=== PATIENT | female | born 1945 | race Caucasian/White ===

== ENCOUNTER 2019-12-21 13:24 | Outpatient (CLI) | payer MEDICARE, SELFPAY | END 2019-12-21 13:25 | disposition home or self-care (01) | DX: H90.3 Sensorineural hearing loss, bilateral (principal) | CPT/HCPCS: 92557; 92567 ==

== ENCOUNTER 2020-06-01 13:30 | Outpatient (RCR) | payer SELFPAY | END 2020-06-01 23:59 | disposition home or self-care (01) | LOC: ANHAUDIO 13:30 | DX: Z46.1 Encounter for fitting and adjustment of hearing aid (principal) | CPT/HCPCS: 99199; V5261 ==

== ENCOUNTER 2020-07-07 00:18 | Outpatient (CLI) | payer MEDICARE, OTHER, SELFPAY ==
[2020-07-07 17:08] LABS: SARS-CoV-2 RNA PCR Negative
== END 2020-07-07 00:19 | disposition home or self-care (01) ==
LOC: ANHCOVIDDT 00:19
PROVIDERS: Visit Provider Internal Medicine Gastroenterology
DX: Z01.812 Encounter for preprocedural laboratory examination (principal); Z20.828 Contact with and (suspected) exposure to other viral communicable diseases
CPT/HCPCS: 87635; C9803; U0003

== ENCOUNTER 2020-07-10 00:34 | Day surgery (SDC) | payer MEDICARE, SELFPAY ==
[2020-06-30 13:50] VITALS: BMI 29.7
[2020-07-10 08:29] VITALS: BP 141/99; PULSE 78; RESP 18; TEMP 36.4; O2SAT 98
--- NOTE | 2020-07-10 08:34 | PM.HPGS ---
History of Present Illness History of Present Illness Consent: Risks, benefits, and alternatives have been discussed and questions answered. Patient agrees to proceed with procedure. Chief complaint: Neoplasm Screening Narrative: Crissy Perez is a 74 year old W female with chronic change in bowel pattern with intermittent diarrhea occasional constipation. Her last colonoscopy was 9 years ago no abnormality was seen at that time. She also has 2 paternal aunts with colon cancer. She denies any rectal bleeding. No weight loss. [facility] Past Medical History Medical History (Updated 07/10/20 @ 08:35 by Doc Gomez MD) Dyslipidemia GERD (gastroesophageal reflux disease) Surgical History Surgical History (Updated 07/10/20 @ 08:37 by Doc Gomez MD) H/O bladder repair surgery H/O hysterectomy for benign disease H/O rotator cuff surgery History of tonsillectomy and adenoidectomy Status post bunionectomy Status post carpal tunnel release of both wrists Status post glaucoma surgery Family History Family History (Updated 01/13/14 @ 15:55 by DOCTOR UNKNOWN) Other Cerebrovascular accident Family history of alcoholism Family history of cataracts Family history of hearing loss Family history of mental disorder Hypertension Social History Social History Smoking status: Never smoker Alcohol intake: never Alcohol use details: Rarely Drinks Substance use: never Substance use type: does not use Spiritual care concerns: No Meds Home Medications and Allergies Home Medications Medication Instructions Recorded Confirmed Type aspirin 81 mg PO DAILY 06/30/20 07/10/20 History beta carotene 25,000 unit PO DAILY 06/30/20 07/10/20 History biotin 10,000 mcg PO DAILY 06/30/20 07/10/20 History calcium carbonate-vitamin D3 1 tablet PO DAILY 06/30/20 07/10/20 History [Calcium 600 + D(3)] dorzolamide-timolol [Cosopt] 1 drp OPHTHALMIC (EYE) BID 06/30/20 07/10/20 History folic acid 0.8 mg PO DAILY 06/30/20 07/10/20 History gabapentin 100 mg PO HS 06/30/20 07/10/20 History mecobalamin (vitamin B12) 1,000 mcg PO DAILY 06/30/20 07/10/20 History omeprazole 20 mg PO DAILY 06/30/20 07/10/20 History prednisolone acetate 1 drp OPHTHALMIC (EYE) 4XW 06/30/20 07/10/20 History Allergies Allergy/AdvReac Type Severity Reaction Status Date / Time brimonidine Allergy Unknown Watery Eye Verified 07/10/20 08:26 cephalexin Allergy Unknown Unknown Verified 07/10/20 08:26 metronidazole Allergy Unknown Unknown Verified 07/10/20 08:26 timolol Allergy Unknown Swelling Verified 07/10/20 08:26 of the Eye moxifloxacin AdvReac Unknown ABD PAIN Verified 07/10/20 08:26 pravastatin AdvReac Unknown FATIGUE, Verified 07/10/20 08:26 MYALGIA sertraline AdvReac Unknown NIGHTMARES Verified 07/10/20 08:26 expectorants AdvReac Unknown Other Uncoded 07/10/20 08:26 Vital Signs Vital Signs - 24 hr 07/10/20 08:29 Temperature 36.4 C Pulse Rate 78 Respiratory Rate 18 Blood Pressure 141/99 H Pulse Oximetry 98 Exam Const: Orientation/consciousness: patient oriented x3 Resp: Auscultation: clear to auscultation bilaterally Cardio: Rate: regular rate Rhythm: regular rhythm Heart sounds: no murmurs GI: GI Palp: Yes Soft to palpation, No Tenderness to palpation present (GI), Yes No hepatosplenomegaly present and No Palpable mass present Auscultation: normal bowel sounds Neuro: General: patient oriented x3 and no focal motor deficits Extrem: General: no pedal edema Assessment and Plan Additional Plan colonoscopy for evaluation of chronic change in bowel pattern has screening procedure
[2020-07-10] MEDS: LACTATED RINGERS 1,000 ML 150 ML IV CONT (08:37)
[2020-07-10] MEDS: ONDANSETRON INJ 4 MG/2 ML VIAL IV PUSH (09:10)
--- NOTE | 2020-07-10 09:13 | WPDANESEPPF ---
Anes - Initial Pre Proc Eval Procedure: Operation Date: 07/10/20 09:30 Proposed Procedures p Screening Colonoscopy - Doc Gomez MD Date/Time: 07/10/20 09:13 Surgeon: Doc Gomez MD Pre Op Diagnosis: Neoplasm Screening Patient Data Age: 74 Gender: F Height: 5 ft 4.5 in Weight: 82.1 kg Last Vital Signs Temp 97.6 F 07/10/20 08:29 Pulse 78 07/10/20 08:29 Resp 18 07/10/20 08:29 BP 141/99 H 07/10/20 08:29 Pulse Ox 98 07/10/20 08:29 Allergies Allergy/AdvReac Type Severity Reaction Status Date / Time brimonidine Allergy Unknown Watery Eye Verified 07/10/20 08:26 cephalexin Allergy Unknown Unknown Verified 07/10/20 08:26 metronidazole Allergy Unknown Unknown Verified 07/10/20 08:26 timolol Allergy Unknown Swelling Verified 07/10/20 08:26 of the Eye moxifloxacin AdvReac Unknown ABD PAIN Verified 07/10/20 08:26 pravastatin AdvReac Unknown FATIGUE, Verified 07/10/20 08:26 MYALGIA sertraline AdvReac Unknown NIGHTMARES Verified 07/10/20 08:26 expectorants AdvReac Unknown Other Uncoded 07/10/20 08:26 Home Medications Medication Instructions Recorded Confirmed Type aspirin 81 mg PO DAILY 06/30/20 07/10/20 History beta carotene 25,000 unit PO DAILY 06/30/20 07/10/20 History biotin 10,000 mcg PO DAILY 06/30/20 07/10/20 History calcium carbonate-vitamin D3 1 tablet PO DAILY 06/30/20 07/10/20 History [Calcium 600 + D(3)] dorzolamide-timolol [Cosopt] 1 drp OPHTHALMIC (EYE) BID 06/30/20 07/10/20 History folic acid 0.8 mg PO DAILY 06/30/20 07/10/20 History gabapentin 100 mg PO HS 06/30/20 07/10/20 History mecobalamin (vitamin B12) 1,000 mcg PO DAILY 06/30/20 07/10/20 History omeprazole 20 mg PO DAILY 06/30/20 07/10/20 History prednisolone acetate 1 drp OPHTHALMIC (EYE) 4XW 06/30/20 07/10/20 History Patient hx anesthesia problems: none Family hx anesthesia problems: none PMFSH Past Medical History Medical History (Updated 07/10/20 @ 09:16 by Twin Harding MD) CVA (cerebral vascular accident) Dyslipidemia GERD (gastroesophageal reflux disease) Hyperlipidemia Surgical History Surgical History (Updated 07/10/20 @ 08:37 by Doc Gomez MD) H/O bladder repair surgery H/O hysterectomy for benign disease H/O rotator cuff surgery History of tonsillectomy and adenoidectomy Status post bunionectomy Status post carpal tunnel release of both wrists Status post glaucoma surgery Family History Family History (Updated 01/13/14 @ 15:55 by DOCTOR UNKNOWN) Other Cerebrovascular accident Family history of alcoholism Family history of cataracts Family history of hearing loss Family history of mental disorder Hypertension Social History Social History Smoking status: Never smoker Alcohol intake: never Alcohol use details: Rarely Drinks Substance use: never Substance use type: does not use Spiritual care concerns: No Anes - Eval Final PreProcedure Day of Procedure 07/10/20 09:13 Patient weight: overweight Heart: regular rate and rhythm Lungs: clear to auscultation Airway: Mallampati scale class II Neurological: alert and oriented Last oral intake: >/= 8 hours ASA classification: III Emergent: no Anesthetic plan: proceed Anesthesia type and monitoring: general GIVS and standard monitoring Informed Consent: The patient's anesthetic plan and its attendant risks and benefits were discussed with the patient/family/POA. Questions were solicited and answers provided to the satisfaction of the patient/family/POA.
[2020-07-10 09:46] VITALS: BP 118/70; PULSE 66; RESP 18; O2SAT 98
[2020-07-10 09:56] VITALS: BP 115/68; PULSE 66; RESP 17; O2SAT 97
[2020-07-10 10:06] VITALS: BP 126/72; PULSE 53; RESP 15; O2SAT 99
[2020-07-10 10:14] VITALS: BP 137/76; PULSE 50; RESP 18; O2SAT 98
== END 2020-07-10 10:20 | disposition home or self-care (01) ==
PROVIDERS: Visit Provider Internal Medicine Gastroenterology
PROC: 0DJD8ZZ Inspection of Lower Intestinal Tract, Via Natural or Artificial Opening Endoscopic (ICD-10-PCS; CPT 45378; principal; 2020-07-10 09:30)
DX: Z12.11 Encounter for screening for malignant neoplasm of colon (principal); K57.30 Diverticulosis of large intestine without perforation or abscess without bleeding; K64.8 Other hemorrhoids; Z80.0 Family history of malignant neoplasm of digestive organs; R19.4 Change in bowel habit; E78.5 Hyperlipidemia, unspecified; K21.9 Gastro-esophageal reflux disease without esophagitis
CPT/HCPCS: 45380; 88305; J2405; J2704; J7120

== ENCOUNTER 2020-07-27 09:52 | Emergency (ER) | payer MEDICARE, SELFPAY ==
--- NOTE | 2020-07-27 09:56 | ED.FEMALEGU ---
HPI - Female Genitourinary General Chief complaint: Urogenital-Female Stated complaint: Warts in genital area Time Seen by Provider: 07/27/20 10:15 Source: patient and RN notes reviewed Mode of arrival: ambulatory Limitations: no limitations History of Present Illness HPI Narrative: 74 female presents with concern for growths in her groin. Reports similar areas that she has had for more than 20 years under her breasts and between her breasts. Reports she is consulted a antique refinisher about these areas, has never had any of these removed. Reports within the past several weeks she is developed similar areas in her groin where her undergarments rub. Reports they are mildly itchy and irritated. Reports improvement of the irritation when she does not wear undergarments and uses cornstarch. Reports she has had a total hysterectomy and has never been diagnosed with HPV or had an abnormal Pap smear. MD elicited complaint: other (Groin irritation) Related Data Home Medications Medication Instructions Recorded Confirmed gabapentin 100 mg PO HS 06/30/20 07/10/20 omeprazole 20 mg PO DAILY 06/30/20 07/10/20 Allergies Allergy/AdvReac Type Severity Reaction Status Date / Time brimonidine Allergy Unknown Watery Eye Verified 07/10/20 08:26 cephalexin Allergy Unknown Unknown Verified 07/10/20 08:26 metronidazole Allergy Unknown Unknown Verified 07/10/20 08:26 timolol Allergy Unknown Swelling Verified 07/10/20 08:26 of the Eye moxifloxacin AdvReac Unknown ABD PAIN Verified 07/10/20 08:26 pravastatin AdvReac Unknown FATIGUE, Verified 07/10/20 08:26 MYALGIA sertraline AdvReac Unknown NIGHTMARES Verified 07/10/20 08:26 expectorants AdvReac Unknown Other Uncoded 07/10/20 08:26 Review of Systems Review of Systems: Narrative: CONSTITUTIONAL: Denies malaise, chills, sweats, or fever. CARDIOVASCULAR: Denies chest pain, palpitations RESPIRATORY: Denies cough or dyspnea. GENITOURINARY: Denies dysuria or hematuria. Denies abnormal vaginal bleeding or abnormal vaginal discharge SKIN: Reports bumps in her groin area but are occasionally irritating and itchy MUSCULOSKELETAL: Denies myalgia. All systems reviewed & are unremarkable except as noted in HPI and below [facility] Past Medical History Medical History (Updated 07/27/20 @ 10:31 by Karen Jacques NP) CVA (cerebral vascular accident) Dyslipidemia GERD (gastroesophageal reflux disease) Hyperlipidemia Surgical History Surgical History (Updated 07/10/20 @ 08:37 by Doc Gomez MD) H/O bladder repair surgery H/O hysterectomy for benign disease H/O rotator cuff surgery History of tonsillectomy and adenoidectomy Status post bunionectomy Status post carpal tunnel release of both wrists Status post glaucoma surgery Family History Family History (Updated 01/13/14 @ 15:55 by DOCTOR UNKNOWN) Other Cerebrovascular accident Family history of alcoholism Family history of cataracts Family history of hearing loss Family history of mental disorder Hypertension Social History Social History Smoking status: Never smoker Alcohol intake: never Substance use: never Substance use type: does not use Gender identity (if verbalized by the patient): Female Spiritual care concerns: No Comments At time of signature, agree with nursing past medical, surgical, social and family history. There is no relevant family history pertinent to the presenting complaint Exam Narrative: Exam Narrative: GENERAL: Well-appearing, well-nourished, and in no acute distress. HEAD: Normocephalic. EYES: PERRLA, conjunctivae clear. NECK: Supple. No lymphadenopathy CHEST: Clear to auscultation. No respiratory distress. HEART: Regular rate and rhythm. No murmur heard. SKIN: Warm, dry. Skin colored somewhat flat papules noted between breasts and under breasts. Some skin colored some slightly erythematous papules noted in the groin without surrounding erythema, edema, induration JAMES
[2020-07-27 10:07] VITALS: BP 116/77; PULSE 73; RESP 16; TEMP 36.9; O2SAT 98
== END 2020-07-27 10:34 | disposition home or self-care (01) ==
PROVIDERS: Emergency Provider Nurse Practitioner
DX: L91.8 Other hypertrophic disorders of the skin (principal); E78.5 Hyperlipidemia, unspecified; K21.9 Gastro-esophageal reflux disease without esophagitis; Z86.73 Personal history of transient ischemic attack (TIA), and cerebral infarction without residual deficits
CPT/HCPCS: 99211; G0463

== ENCOUNTER → 2020-12-29 12:04 | Outpatient (CLI) | payer MEDICARE, OTHER, SELFPAY ==
--- NOTE | ~2020-12-29 | MM_ITS ---
EXAMINATION: MM screening alexei BI w brenda HISTORY: Screening mammogram TECHNIQUE: Craniocaudal and mediolateral oblique 3-D tomosynthesis images were obtained and synthetic 2-D images were generated. CAD analysis was submitted and interpreted. COMPARISON: 10/21/2019, 10/19/2018, 10/15/2017 bilateral digital screening mammogram examinations BREAST PARENCHYMAL COMPOSITION: There are scattered areas of fibroglandular density. FINDINGS: Scattered benign calcifications, more numerous on the left. There is no evidence of suspici ous mass, calcification, or architectural distortion to suggest malignancy in either breast. There ch s been no suspicious interval change. IMPRESSION: 1. No mammographic evidence of malignancy. 2. Recommend routine screening mammography in one year. BI-RADS Category 2: Benign finding(s). Reviewed, dictated and finalized at location A. R RESOURCE SPECIALIST
== END ==
DX: Z12.31 Encounter for screening mammogram for malignant neoplasm of breast (principal)
CPT/HCPCS: 77063; 77067

== ENCOUNTER → 2022-01-30 10:27 | Outpatient (CLI) | payer MEDICARE, OTHER, SELFPAY ==
--- NOTE | ~2022-01-30 | MM_ITS ---
EXAMINATION: MM screening alexei BI w brenda HISTORY: Screening mammogram TECHNIQUE: Craniocaudal and mediolateral oblique 3-D tomosynthesis images were obtained and synthetic 2-D images were generated. CAD analysis was submitted and interpreted. COMPARISON: 12/29/2020, 10/21/2019, 10/19/2018 bilateral screening mammogram examinations BREAST PARENCHYMAL COMPOSITION: FINDINGS: There is a stable circumscribed approximately 5.8 mm opacity in the posterior upper outer q uadrant of the left breast, stable since 10/15/2017. There is no evidence of suspicious mass, calcifi cation, or architectural distortion to suggest malignancy in either breast. There has been no suspici ous interval change. IMPRESSION: 1. No mammographic evidence of malignancy. 2. Recommend routine screening mammography in one year. BI-RADS Category 2: Benign finding(s). Reviewed, dictated and finalized at location A.
== END ==
DX: Z12.31 Encounter for screening mammogram for malignant neoplasm of breast (principal)
CPT/HCPCS: 77063; 77067

== ENCOUNTER → 2023-02-18 09:49 | Outpatient (CLI) | payer MEDICARE, OTHER, SELFPAY ==
--- NOTE | ~2023-02-18 | MR_ITS ---
EXAMINATION: MR lumbar spine wo con DATE: 02/18/2023 10:56 INDICATION: Chronic midline low back pain TECHNIQUE: Magnetic resonance imaging (MRI) of the lumbar spine was performed without intravenous con trast. Sequences included sagittal T2-weighted FSE, sagittal T2-weighted FS FSE, sagittal T1-weighted FSE, and axial T2-weighted FSE. COMPARISON: None FINDINGS: 10 degrees lumbar dextroscoliosis. Sagittal alignment is normal. Vertebral body heights are normal. T 1 hyperintense likely hemangioma at L2. Bone marrow signal is otherwise normal. Moderate disc height loss at L2-L3. Mild disc height loss at remaining levels from T12-L1 through L5-S1. There are annular fissures at L2-L3 through L5-S1. The conus medullaris terminates at T12-L1. There is normal signal i n the caudal spinal cord. Paravertebral soft tissues are unremarkable. The following disc levels are specifically discussed: T12-L1: Disc is mildly bulging. There is mild bilateral facet joint osteoarthritis. There is minimal bilateral neural foraminal stenosis. There is mild central canal stenosis. L1-L2: Disc is bulging. There is mild hypertrophy of the ligamentum flavum. There is mild left and m oderate right facet joint osteoarthritis. There is mild right and mild to moderate left neural forami nal stenosis. There is mild central canal stenosis. L2-L3: Disc is bulging with small central disc extrusion with disc material extending 3 mm caudal to the level of the superior endplate of L3. There is mild hypertrophy of the ligamentum flavum. There is moderate bilateral facet joint osteoarthritis. There is mild right and mild to moderate left neura l foraminal stenosis. There is mild central canal stenosis. L3-L4: Disc is bulging. There is hypertrophy of the ligamentum flavum. There is moderate right and m ild to moderate left facet joint osteoarthritis. There is moderate left and mild to moderate right ne ural foraminal stenosis. There is mild central canal stenosis with mild narrowing of the left and rig ht lateral recesses. L4-L5: Disc is bulging with superimposed right foraminal zone disc extrusion with disc material exten ding couple millimeter caudal to the level of the superior endplate of L5. There is hypertrophy of th e ligamentum flavum. There is moderate left and severe right facet joint osteoarthritis. There is mod erate right and mild left neural foraminal stenosis. There is moderate central canal stenosis. There is also narrowing of the lateral recesses, mild on the left and severe on the right. L5-S1: Disc is bulging. There is hypertrophy of the ligamentum flavum. There is severe bilateral fac et joint osteoarthritis. There is moderate right and mild to moderate left neural foraminal stenosis. There is mild to moderate central canal stenosis. IMPRESSION: 1. 10 degree lumbar dextroscoliosis with moderate spondylosis. Reviewed, dictated and finalized at location L.
--- NOTE | ~2023-02-18 | MM_ITS ---
EXAMINATION: MM screening alexei BI w brenda HISTORY: Screening mammogram TECHNIQUE: Craniocaudal and mediolateral oblique 3-D tomosynthesis images were obtained and synthetic 2-D images were generated. CAD analysis was submitted and interpreted. COMPARISON: 01/30/2022, 12/29/2020, 10/21/2019 BREAST PARENCHYMAL COMPOSITION: The breasts are almost entirely fatty. FINDINGS: Scattered benign-appearing calcifications are present. No suspicious mass, calcification, o r architectural distortion are identified in either breast to suggest malignancy. There has been no s uspicious interval change. IMPRESSION: 1. No mammographic evidence of malignancy. 2. Recommend routine screening mammography in one year. BI-RADS Category 2: Benign finding(s). Reviewed, dictated and finalized at location A.
== END ==
PROVIDERS: PCP Hospitalist; Visit Provider Hospitalist
DX: Z12.31 Encounter for screening mammogram for malignant neoplasm of breast (principal); M47.896 Other spondylosis, lumbar region
CPT/HCPCS: 72148; 77063; 77067

== ENCOUNTER 2023-02-21 13:32 | Outpatient (CLI) | payer MEDICARE, OTHER, SELFPAY ==
--- NOTE | 2023-02-21 | ECG_ITS ---
Measurements Intervals [place] Rate: 77 P: 40 ID: [id number] QRS: -15 QRSD: 87 T: 47 QT: 356 QTc: 405 Interpretive Statements SINUS RHYTHM WITH FIRST DEGREE AV BLOCK BORDERLINE ECG NO PREVIOUS ECG AVAILABLE FOR COMPARISON Electronically Signed On 02-21-2023 14:23:48 CDT by Otoniel Brown D.O.
[2023-02-21 14:30] LABS: Anion Gap 6 mmol/L (8-16); Blood Urea Nitrogen 19 mg/dL (7-17); Calcium 9.3 mg/dL (8.4-10.2); Carbon Dioxide 28 mmol/L (22-30); Chloride 104 mmol/L (98-107); Estimated Glomerular Filt Rate > 60; Glucose 126 mg/dL (65-110); Potassium 3.8 mmol/L (3.4-5.0); Sodium 138 mmol/L (137-145)
== END 2023-02-21 13:33 | disposition home or self-care (01) ==
LOC: ANHLAB 13:36
PROVIDERS: PCP Hospitalist; Visit Provider Orthopaedic Surgery
DX: Z01.818 Encounter for other preprocedural examination (principal); I44.0 Atrioventricular block, first degree
CPT/HCPCS: 36415; 80048; 93005

== ENCOUNTER 2024-03-12 12:31 | Outpatient (CLI) | payer MEDICARE, SELFPAY ==
--- NOTE | ~2024-03-12 | MM_ITS ---
EXAMINATION: MM screening alexei BI w brenda HISTORY: Screening mammogram TECHNIQUE: Craniocaudal and mediolateral oblique 3-D tomosynthesis images were obtained and synthetic 2-D images were generated. CAD analysis was submitted and interpreted. COMPARISON: 02/18/2023, 12/29/2020 bilateral screening mammogram examinations BREAST PARENCHYMAL COMPOSITION: There are scattered areas of fibroglandular density. FINDINGS: Scattered benign calcifications are again present. There is no evidence of suspicious mass, calcification, or architectural distortion to suggest malignancy in either breast. There has been no suspicious interval change. IMPRESSION: 1. No mammographic evidence of malignancy. 2. Recommend routine screening mammography in one year. BI-RADS Category 2: Benign finding(s). Reviewed, dictated and finalized at location B.
== END 2024-03-12 12:32 ==
PROVIDERS: PCP Family Medicine; Visit Provider Family Medicine
DX: Z12.31 Encounter for screening mammogram for malignant neoplasm of breast (principal)
CPT/HCPCS: 77063; 77067

== ENCOUNTER 2024-11-19 13:36 | Outpatient (CLI) | payer MEDICARE, SELFPAY ==
--- NOTE | ~2024-11-19 | XR_ITS ---
EXAMINATION: XR sacroiliac joints min 3V DATE: 11/19/2024 14:03 INDICATION: Pain at the sacroiliac joints. TECHNIQUE: 3 views of the sacroiliac joints were obtained. COMPARISON: None. FINDINGS: There is lumbar dextrocurvature and at least moderate spondylosis. No fracture. There is mi ld osteoarthritis of the sacroiliac joints. IMPRESSION: 1. Mild osteoarthritis of the sacroiliac joints. No evidence of inflammatory arthropathy. Reviewed, dictated and finalized at location A. FOLIO CONSULTANT IMPRESSION: 1. Mild osteoarthritis of the sacroiliac joints. No evidence of inflammatory ar thropathy.
== END 2024-11-19 13:37 | disposition home or self-care (01) ==
DX: M47.818 Spondylosis without myelopathy or radiculopathy, sacral and sacrococcygeal region (principal)
CPT/HCPCS: 72202

== ENCOUNTER 2025-03-21 12:33 | Outpatient (CLI) | payer MEDICARE, SELFPAY ==
--- NOTE | ~2025-03-21 | MM_ITS ---
EXAMINATION: screening [facility] BI w brenda INDICATION: Asymptomatic, referred for screening mammogram COMPARISON: 03/12/2024 2 10/19/2018 TECHNIQUE: Digital breast tomosynthesis craniocaudal and mediolateral oblique views of Both breasts w ere obtained with computer-aided detection to assist in interpretation of the study. FINDINGS: The breasts are almost entirely fatty. No focal dominant mass, architectural distortion, or suspicious microcalcifications are identified. There are no features to suggest malignancy. IMPRESSION: No evidence of malignancy in the breast. Recommend continued screening mammography BI-RADS 1, NEGATIVE Reviewed, dictated and finalized at location B.
== END 2025-03-21 12:34 | disposition home or self-care (01) ==
LOC: MICIMG 12:34
DX: Z12.31 Encounter for screening mammogram for malignant neoplasm of breast (principal)
CPT/HCPCS: 77063; 77067

== ENCOUNTER 2025-06-02 14:15 | Outpatient (CLI) | payer MEDICARE, SELFPAY ==
--- OUTSIDE RECORDS SUMMARY | 2025-06-02 14:17 | XMS_ITS | Clinical Summary ---
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 kg (180 lb) 04/25/2025 9:22 AM CDT Height 153.7 cm (5' 0.5) 04/25/2025 9:22 AM CDT Body Mass Index 34.58 04/25/2025 9:22 AM CDT Plan of Treatment Health Maintenance Due Date Last Done Comments Covid-19 Vaccine (2023-2 5 season) 2024 06/21/2024, 06/19/2024, 07/11/2023, Additional history exists Influenza Vaccine (#1) 2025 , 06/12/2024, 06/27/2023, Additional history exists Depression Screening 04/18/2026 04/18/2025, 04/16/2023, 04/02/2023, Additional history exists Well Visit 65+ 04/18/2026 04/18/2025, 03/20, 02/18/2022 Fall Risk Assessment 05/10/2026 05/10/2025, 04/18/2025, 04/02/2023, Additional history exists Osteoporosis Screening-Bone Density Scan 04/25/2027 04/25/2025 DTaP/Tdap/Td Vaccine Discontinued 06/14/2008 Hepatitis B Screening Completed 04/11/2009 , 06/14/2008, 05/10/2008 Pneumococcal vaccine 65+ Completed 016, 09/14/2016, 11/14/2010 Zoster Vaccine Completed 03/17/2018, 12/18, 09/20/2008 Breast Cancer Screening-Mammogram Discontinued 02/18/2023, 01/31/2022, 01/30/2022 Hepatitis C Screening Discontinued Procedures Procedure Name Priority Date/Time Associated Diagnosis Comments VITAMIN D 25 HYDROXY Routine 05/18/2025 8:17 AM CDT Vitamin D deficiency VITAMIN B12 Routine 05/18/2025 8:17 AM CDT Vitamin B12 deficiency THYROID FUNCTION CASCADE Routine 05/18/2025 8:17 AM CDT Screening for thyroid disorder LIPID PANEL Routine 05/18/2025 8:17 AM CDT Benign essential hypertension HEMOGLOBIN A1C Routine 05/18/2025 8:17 AM CDT Screening for diabetes mellitus COMPREHENSIVE METABOLIC PANEL Routine 05/18/2025 8:17 AM CDT Benign essential hypertension CBC WITH AUTO DIFFERENTIAL Routine 05/18/2025 8:17 AM CDT Screening for deficiency anemia IR INJECTION SI JOINT LEFT WITH GUIDANCE Schedule Routine, Read Routine (OP Routine) 05/10/2025 11:37 AM CDT Sacroiliac joint pain DEXA AXIAL SKELETON BONE DENSITY 1 OR MORE SITES Schedule Routine, Read Routine (OP Routine) 04/25/2025 9:03 AM CDT Postmenopausal SCAN - RADIOLOGY/IMAGING 03/21/2025 HM MAMMOGRAPHY Routine 02/18/2023 from Last 3 Months or Most Recently Relevant to Health Maintenance Results * Thyroid Function [place] (05/18/2025 8:17 AM CDT) TSH 3.66 0.40 - 4.50 mIU/L [facility] Blood 05/18/2025 8:17 AM CDT 05/18/2025 8:18 AM CDT Narrative [facility] - 05/19/2025 4:36 AM CDT FASTING:YES FASTING: YES Stacey Hollingsworth MD LAB BLOOD ORDERABLES Final Result [facility] [address] [place] [address] * (ABNORMAL) CBC with auto differential (05/18/2025 8:17 AM CDT) WBC 10.0 3.8 - 10.8 Thousand/u L [facility] RBC, POC 4.74 3.80 - 5.10 Million/uL [facility] Hgb 13.1 11.7 - 15.5 g/dL [facility] Hct 41.8 35.0 - 45.0 % [facility] MCV 88.2 80.0 - 100.0 fL [facility] MCH 27.6 27.0 - 33.0 pg [facility] MCHC 31.3(L) 32.0 - 36.0 g/dL [facility] Comment: For adults, a slight decrease in the calculated MCHC value (in the range of 30 to 32 g/dL) is most likely not clinically significant; however, it should be interpreted with caution in correlation with other red cell parameters and the patient's clinical condition. Rdw 13.7 11.0 - 15.0 % [facility] Platelets 317 140 - 400 Thousand/u L [facility] MPV 9.8 7.5 - 12.5 fL [facility] Neutrophils, abs 6,950 1,500 - 7,800 cells/uL [facility] Lymphocytes, abs 2,330 850 - 3,900 cells/uL [facility] Monocyte abs 560 200 - 950 cells/uL [facility] Eosinophils, abs 120 15 - 500 cells/uL [facility] Basophils, abs 40 0 - 200 cells/uL [facility] Neutrophils 69.5 % [facility] Lymphocyte pct 23.3 % [facility] Monocytes 5.6 % [facility] Eosinophils 1.2 % [facility] Basophils 0.4 % [facility] Blood 05/18/2025 8:17 AM CDT 05/18/2025 8:18 AM CDT Narrative [facility] - 05/19/2025 4:36 AM CDT FASTING:YES FASTING: YES us Stacey Hollingsworth MD LAB BLOOD ORDERABLES Final Result [facility] [address] [place] [address] * Vitamin D 25 hydroxy (05/18/2025 8:17 AM CDT) Pathologist [facility] Vitamin D 25-OH 37 30 - 100 ng/mL [facility] Comment: Vitamin D Status 25-OH Vitamin D: Deficiency: <20 ng/mL Insufficiency: 20 - 29 ng/mL Optimal: > or = 30 ng/mL For 25-OH Vitamin D testing on patients on D2-supplementation and patients for whom quantitation of D2 and D3 fractions is required, the QuestAssureD(TM) 25-OH VIT D, (D2,D3), LC/MS/MS is recommended: order code 21107 (patients >2yrs). See Note 1 Note 1 For additional information, please refer to http://education.[employer]/faq/FYV071 (This link is being provided for informational/ educational purposes only.) Blood 05/18/2025 8:17 AM CDT 05/18/2025 8:18 AM CDT Narrative [facility] - 05/19/2025 4:36 AM CDT FASTING:YES FASTING: YES Result [facility] Stacey Hollingsworth MD LAB BLOOD ORDERABLES Final Result [facility] [address] [place] [address] * (ABNORMAL) Hemoglobin A1c (05/18/2025 8:17 AM CDT) Hgb A1C 6.4(H) <5.7 % of total Hgb [facility] Comment: For someone without known diabetes, a hemoglobin A1c value between 5.7% and 6.4% is consistent with prediabetes and should be confirmed with a follow-up test. For someone with known diabetes, a value <7% indicates that their diabetes is well controlled. A1c targets should be individualized based on duration of diabetes, age, comorbid conditions, and other considerations. This assay result is consistent with an increased risk of diabetes. Currently, no consensus exists regarding use of hemoglobin A1c for diagnosis of diabetes for children. Blood 05/18/2025 8:17 AM CDT 05/18/2025 8:18 AM CDT Narrative [facility] - 05/19/2025 4:36 AM CDT FASTING:YES FASTING: YES Stacey Hollingsworth MD LAB BLOOD ORDERABLES Final Result Performing Organization Address City/[facility]/ZIP Co de Phone Number [facility] [address] [place] [address] * Vitamin B12 (05/18/2025 8:17 AM CDT) Pathologist [facility] Vitamin B12 255 200 - 1,100 pg/mL [facility] Comment: Please Note: Although the reference range for vitamin B12 is 200-1100 pg/mL, it has been reported that between 5 and 10% of patients with values between 200 and 400 pg/mL may experience neuropsychiatric and hematologic abnormalities due to occult B12 deficiency; less than 1% of patients with values above 400 pg/mL will have symptoms. Blood 05/18/2025 8:17 AM CDT 05/18/2025 8:18 AM CDT [facility] - 05/19/2025 4:36 AM CDT FASTING:YES FASTING: YES Result [facility] Stacey Hollingsworth MD LAB BLOOD ORDERABLES Final Result Performing Organization Address [facility] [place] Co de Phone Number [facility] [address] [place] [address] * (ABNORMAL) Lipid panel (05/18/2025 8:17 AM CDT) [facility] Cholesterol 223(H) <200 mg/dL [facility] HDL 64 > OR = 50 mg/dL [facility] Triglycerides 102 <150 mg/dL [facility] LDL 139(H) mg/dL (calc) [facility] Comment: Reference range: <100 Desirable range <100 mg/dL for primary prevention; <70 mg/dL for patients with CHD or diabetic patients with > or = 2 CHD risk factors. LDL-C is now calculated using the Pankaj calculation, which is a validated novel method providing better accuracy than the Friedewald equation in the estimation of LDL-C. Wilmar WANG et al. BERNIE. 2013;310(19): 7694-6959 (http://education.trip.me.ithinksport/faq/MOX886) Chol/HDL ratio 3.5 <5.0 (calc) [facility] Non-HDL, (LDL+VLDL) 159(H) <130 mg/dL (calc) [facility] Comment: For patients with diabetes plus 1 major ASCVD risk factor, treating to a non-HDL-C goal of <100 mg/dL (LDL-C of <70 mg/dL) is considered a therapeutic option. Blood 05/18/2025 8:17 AM CDT 05/18/2025 8:18 AM CDT Narrative [facility] - 05/19/2025 4:36 AM CDT FASTING:YES FASTING: YES Stacey Hollingsworth MD LAB BLOOD ORDERABLES Final Result [facility] [address] [place] [address] * Comprehensive metabolic panel (05/18/2025 8:17 AM CDT) [facility] Glucose 89 65 - 99 mg/dL [facility] Comment: Fasting reference interval BUN 23 7 - 25 mg/dL [facility] Creatinine 0.78 0.60 - 1.00 mg/dL [facility] eGFR 77 > OR = 60 mL/min/1.7 3m2 [facility] BUN/creat ratio SEE NOTE: 6 - 22 (calc) [facility] Comment: Not Reported: BUN and Creatinine are within reference range. Sodium 140 135 - 146 mmol/L [facility] Potassium, pl 4.6 3.5 - 5.3 mmol/L [facility] Chloride 105 98 - 110 mmol/L [facility] CO2 27 20 - 32 mmol/L [facility] Calcium 9.0 8.6 - 10.4 mg/dL [facility] Protein, sr 6.9 6.1 - 8.1 g/dL [facility] Albumin 4.1 3.6 - 5.1 g/dL [facility] GLOBULIN 2.8 1.9 - 3.7 g/dL (calc) [facility] Alb/glob ratio 1.5 1.0 - 2.5 (calc) [facility] Bilirubin, total 0.5 0.2 - 1.2 mg/dL [facility] Alk phos 77 37 - 153 U/L [facility] AST 12 10 - 35 U/L [facility] ALT (SGPT) 13 6 - 29 U/L [facility] Blood 05/18/2025 8:17 AM CDT 05/18/2025 8:18 AM CDT Narrative [facility] - 05/19/2025 4:36 AM CDT FASTING:YES FASTING: YES us Stacey Hollingsworth MD LAB BLOOD ORDERABLES Final Result Performing Organization Address City/[facility] Co de Phone Number [facility] [address] [place] [address] * IR Injection SI Joint Left with Guidance (05/10/2025 11:37 AM CDT) Narrative [facility] - 05/10/2025 11:37 AM CDT The images from this study are not interpreted by Radiology. Please refer to the physician's procedure / OR operative note. us Donato Mahan MD IMG IR PROCEDURES Final Res ult Performing Organization Address [facility] [place] Co de Phone Number [email or web address] * Dexa Axial Skeleton Bone Density 1 or 2 Site (04/25/2025 9:03 AM CDT) Anatomical Region Laterality Modality Body N/A Radiographic Brandy ging Narrative 04/25/2025 1:04 PM CDT Patient Name: Crissy Perez Date of : 1945 Date of scan: 04/25/2025 Bone mineral density was performed on a GleeMaster Discovery Densitometer. Based on machine cross-calibration and precision studies the least significant changes of this densitometer is 0.024 g/cm2 at the spine, 0.020 g/cm2 at the total proximal femur, and 0.014g/cm2 at the forearm. HISTORY: This is a 79 y.o. postmenopausal female. She reports that she has never smoked. She has never used smokeless tobacco. Previously treated with hormone replacement therapy and thyroid hormone and current complaint of back pain, neck pain, and leg pain. INDICATIONS: Menopause status. FINDINGS: BONE MINERAL DENSITY OF THE LUMBAR SPINE Bone Mineral Density (BMD) of the lumbar spine was measured from L1-L4 and the average density was calculated to be 1.167 gm/cm2. This corresponds to a T-score (standard deviations from the mean of young adults) of 1.1. There is no previous study available for comparison. BONE MINERAL DENSITY OF THE PROXIMAL FEMUR Bone Mineral Density (BMD) of the left hip total was found to be 0.927 gm/cm2. This corresponds to a T-score standard deviations from the mean of young adults of -0.1. Femoral neck is 0.842 gm/cm2 with a T-score (standard deviations from the mean of young adults) of -0.1. There is no previous study available for comparison. SUMMARY: Bone mineral density is near the young adult normal mean with no increased risk for fracture. ADDITIONAL COMMENTS: Postmenopausal Women and Men Over 50: Diagnostic criteria: Osteoporosis: BMD at or below -2.5 T-score; Osteopenia (low bone mass): BMD between -1.0 and -2.5 T-score. If the patient has a history of a fragility fracture, a fracture that occurred with trauma equivalent to a fall from a standing position or less, then the diagnosis is osteoporosis regardless of bone density. The history and data sections of the bone mineral density scan were prepared by Renetta Foy) JAMARCUS who is accredited by the International Society of Clinical Densitometry. The overall patient assessment and scan interpretation were performed by Justina Ortega M.D. who is certified by the International Society of Clinical Densitometry. [id number] Stacey Hollingsworth MD [facility] DXA PROCEDURES F inal Result * SCAN - RADIOLOGY/IMAGING (03/21/2025) Anatomical Region Laterality Modality Other Provider Scanning Final Result * MAMMOGRAPHY (02/18/2023) [facility] Mammography Normal us Historical Provider HEALTH MAINTENANCE Final Result from Last 3 Months or Most Recently Relevant to Health Maintenance Insurance MEDICARE [facility] Address: [facility] [id number] [place] [address] MEDICARE [facility] Address: [facility] [id number] [place] [id number] Care Teams Magazine Repairer Relationship Specialty Start Date End Date Stacey Hollingsworth MD PCP - General Geriatric Medicine 08/18/24
--- OUTSIDE RECORDS SUMMARY | 2025-06-02 14:17 | XMS_ITS ---
Author Organization [facility] stiQRd [facility] Address [address] [place] [address] Care Team Providers Care Blade Bender Furnace Tender Name Role Phone Chantelle Badillo Unavailable [phone] REASON FOR VISIT Therapy Visit, I am doing so much beter Medications Medication SIG (Take, Route, Frequency, Duration) Notes Start Date End Date Status Gabapentin 100 MG Oral 05/13/2022 A ctive Acetaminophen-Codeine #3 300-30 MG Oral 05/13/2022 Active Dorzolamide HCl-Timolol Mal 22.3-6.8 MG/ML Ophthalmic 05/13/2022 Active Gabapentin 600 MG Oral 05/13/2022 A ctive prednisoLONE Acetate 1 % Ophthalmic 05/13/2022 Active HYDROcodone-Acetaminophen 5-325 MG Oral 05/13/2022 Active Gabapentin 300 MG Oral 05/13/2022 A ctive Meloxicam 7.5 MG Oral 05/13/2022 Ac tive Omeprazole 20 MG Oral 05/13/2022 Ac tive Furosemide 20 MG Oral 05/13/2022 Ac tive Amoxicillin-Pot Clavulanate 875-125 MG Oral 05/13/2022 Active Social History Tobacco Use: Social History Observation Description Date Details (start date - stop date) Never Smoker NA - NA Sex Assigned At : Social History Observation Description Sex Assigned At Female Tobacco Control (Standard) Question Answer Notes Tobacco use: Nonsmoker Encounters Encounter Location Date Provider Diagnosis [facility] [address] [place] [address] 06/01/2025 Chantelle Cheng Adjustment disorder, unspecified F43.20 Assessments Encounter Date Diagnosis (ICD Code) Assessment Notes Treatment Notes Treatment Clinical Notes Section Notes 06/01/2025 Adjustment disorder, unspecified (ICD-10 - F43.20) 06/01/2025 Edin Woodward, a 79-year-old female, presents with grief and emotional distress related to recent marital separation after 17 years of marriage, while managing pre-diabetes and musculoskeletal pain. Adjustment Disorder with Depressed Mood Assessment: Smitha is experiencing emotional distress and grief following the recent separation from her of 17 years. She reports actively working on forgiveness and processing the loss of her marriage, indicating a healthy coping mechanism. The patient is taking proactive steps to create a positive environment by removing items associated with painful memories from her home. Despite the emotional challenges, she maintains a generally positive outlook and is exploring independent activities such as travel, suggesting resilience and adaptive coping strategies. Plan: - Continue to support patient's grief process and coping strategies - Encourage ongoing efforts in forgiveness and creating a positive home environment - Support patient's exploration of independent activities as a means of self-care and personal growth - Monitor for signs of worsening mood or complicated grief Gait, Strength, and Balance Training ExercisesThis handout provides simple exercises to improve your gait, strength, and balance. Theseexercises can help prevent falls, improve mobility, and enhance overall function. Perform them in asafe space, use support if needed, and stop if you feel pain or dizziness.1. Gait Training Exercises- Walk in a straight line for 10-20 feet, heel-to-toe.- Step over small objects (cones or rolled towels).- Practice walking sideways and backwards.- Use a treadmill if available, under supervision.2. Balance Exercises- Stand on one foot for 10-30 seconds; switch legs.- Walk heel-to-toe in a straight line.- Use a balance board or cushion to challenge stability.- Practice rising from a chair without using your hands.3. Strength Training Exercises- Qya-mq-bymho: rise from a chair repeatedly.- Wall push-ups: stand at arm's length from a wall and push.- Step-ups on a low step or stairs.- Leg lifts while seated or lying down.Consult your primary care provider (PCP) before starting these exercises, especially if you havemedical conditions or difficulty performing them Plan Of Treatment Treatment Notes Assessment Notes Other Smitha, a 79-year-old female, presents with grief and emotional distress related to recent marital separation after 17 years of marriage, while managing pre-diabetes and musculoskeletal pain. Adjustment Disorder with Depressed Mood Assessment: Smitha is experiencing emotional distress and grief following the recent separation from her of 17 years. She reports actively working on forgiveness and processing the loss of her marriage, indicating a healthy coping mechanism. The patient is taking proactive steps to create a positive environment by removing items associated with painful memories from her home. Despite the emotional challenges, she maintains a generally positive outlook and is exploring independent activities such as travel, suggesting resilience and adaptive coping strategies. Plan: - Continue to support patient's grief process and coping strategies - Encourage ongoing efforts in forgiveness and creating a positive home environment - Support patient's exploration of independent activities as a means of self-care and personal growth - Monitor for signs of worsening mood or complicated grief Gait, Strength, and Balance Training ExercisesThis handout provides simple exercises to improve your gait, strength, and balance. Theseexercises can help prevent falls, improve mobility, and enhance overall function. Perform them in [facility] space, use support if needed, and stop if you feel pain or dizziness.1. Gait Training Exercises- Walk in a straight line for 10-20 feet, heel-to-toe.- Step over small objects (cones or rolled towels).- Practice walking sideways and backwards.- Use a treadmill if available, under supervision.2. Balance Exercises- Stand on one foot for 10-30 seconds; switch legs.- Walk heel-to-toe in a straight line.- Use a balance board or cushion to challenge stability.- Practice rising from a chair without using your hands.3. Strength Training Exercises- Vuh-lv-nvihq: rise from a chair repeatedly.- Wall push-ups: stand at arm's length from a wall and push.- Step-ups on a low step or stairs.- Leg lifts while seated or lying down.Consult your primary care provider (PCP) before starting these exercises, especially if you havemedical conditions or difficulty performing them Next Appt Details Follow Up: 2 Weeks, Reason: Provider Name:Chantelle Cheng, 06/15/2025 03:00:00 PM, [address], [facility] [address], [place], [address], Provider Name:Chantelle Bro Raúl s Logan, 06/29/2025 03:00:00 PM, [address], [place] [address], [place], [address], Provider Name:Chantelle chris Logan, 07/13/2025 03:00:00 PM, [address], [place] [address], [place], [address], Progress Notes * SMITHA SOLITARIODOB:1945 ( 79 yo F)Acc No.[id number]:06/01/2025 Patient: Jaylon MAYES WOODWARD Provider: Jeimy CHENG LCSW :1945 A ge:79 Y S ex:Female Date:06/01/2025 Address:[address] [place], [place] [id number] Data: * Time Tracker: * Date Start Time End Time Duration User Type Captured By Mode Notes 06/01/2025 03:10 PM 04:03 PM 00:53:00 Therapist Mel Badillo Manual * Chief Complaints: * 1 . Therapy Visit. 2. I am doing so much beter. * HPI: D epression Screening: AYO-7 (2018 Edition) F eeling nervous, anxious, or on edge?Several days, N ot being able to stop or control worrying N ot at all, W orrying too much about different things N ot at all, T rouble relaxing N ot at all, B eing so restless that it is hard to sit still N ot at all, B ecoming easily annoyed or irritable?Not at all, F eeling afraid as if something awful might happen S everal days, T otal AYO-7 Score 2 , I nterpretation of Total ( 0 to 4) No Anxiety. [place]-Suicide Severity Rating Scale: Suicide Risk (CSRS-screener) i n the past one month Have you wished you were or wished you could go to sleep and not wake up? N o, i n the past one month Have you actually had any thoughts of killing yourself? N o. D epression screening: PHQ-9 L ittle interest or pleasure in doing things S everal days, F eeling down, depressed, or hopeless N ot at all, T rouble falling or staying asleep, or sleeping too much N ot at all, F eeling tired or having little energy S everal days, P oor appetite or overeating N ot at all, F eeling bad about yourself or that you are a failure, or have let yourself or your family down N ot at all, T rouble concentrating on things, such as reading the newspaper or watching television N ot at all, M oving or speaking so slowly that other people could have noticed; or the opposite, being so fidgety or restless that you have been moving around a lot more than usual N ot at all, T houghts that you would be better off or of hurting yourself in some way N ot at all, T otal Score 2 ,?Interpretation M inimal Depression. F unctional Status: Functional Status Assessment F all Risk Assessment: T wo or more falls with injury in the past year. S creening: Chief Complaint Grieving loss of marriage, working on forgiveness, from after 17 years History of Present Illness Smitha is a 79-year-old woman who is currently from her and is seeking counseling to process the end of her 17-year marriage. She is working on forgiveness and grieving the loss of the relationship and its potential. Smitha reports that she is still involved in her 's life, helping with his cooking, doctor's appointments, and medication management, despite their separation. Her has purchased a mobile home, indicating a physical separation. As part of her coping process, Smitha mentions she is removing items from her home that are associated with people who have hurt her, expressing a desire to surround herself with only happy memories. In terms of her personal growth and adaptation, Smitha is considering traveling on her own, suggesting a move towards independence. She is also taking proactive steps regarding her health, preparing to see a dietitian for pre-diabetes management. Smitha reports being in good spirits overall, despite dealing with some physical health issues, including a stress fracture in her knee and back pain for which she receives injections. Review of Systems Musculoskeletal: Positive for back pain and stress fracture in knee. * Social History: T obacco Use: T obacco Control (Standard) T obacco use: N onsmoker. M igrated Social History: M igrated Social History: Alcohol Intake: Occasional 05/13/2022,Tobacco Years: Never smoker 05/13/2022. * Medications: T aking Amoxicillin-Pot Clavulanate 875-125 MG Tablet Oral , Taking HYDROcodone-Acetaminophen 5-325 MG Tablet Oral , Taking Furosemide 20 MG Tablet Oral , Taking Meloxicam 7.5 MG Tablet Oral , Taking Omeprazole 20 MG Capsule Delayed Release Oral , Taking Gabapentin 300 MG Capsule Oral , Taking prednisoLONE Acetate 1 % Suspension Ophthalmic , Taking Dorzolamide HCl-Timolol Mal 22.3-6.8 MG/ML Solution Ophthalmic , Taking Gabapentin 600 MG Tablet Oral , Taking Gabapentin 100 MG Capsule Oral , Taking Acetaminophen-Codeine #3 300-30 MG Tablet Oral , Medication List reviewed and reconciled with the patient * Examination: G eneral Examination: N /A. Assessment: * Assessment: 1. A djustment disorder, unspecified - F43.20 (Primary) Plan: * Treatment: * Procedure Codes: 9 0837 PSYCHOTHERAPY W/PATIENT 60 MINUTES, 1036F TOBACCO NON-USER * Follow Up: 2 Weeks * Billing Information: * Visit Code: * Procedure Codes: 70055 PSYCHOTHERAPY W/PATIENT 60 MINUTES. 1036F TOBACCO NON-USER. * Sign off status: Completed Signatures: No Ad Hoc Signature Added true * Provider: Jeimy CHENG LCSW Date: 06/01/2025 Generated for Brandon Crowell/Syed on: 06/02/2025 02:17 PM CDT History and Physical Notes * HPI (History of Present Illness) Category Sub-Category Detail Notes Category Not es Depression screening PHQ-9 Little inte rest or pleasure in doing things: Several days Feeling down, depressed, or hopeless: No t at all Trouble falling or staying asleep, or sl eeping too much: Not at all Feeling tired or having little energy: S everal days Poor appetite or overeating: Not at all Feeling bad about yourself o r that you are a failure, or have let yourself or your family down: Not at all Trouble concentrating on thi ngs, such as reading the newspaper or watching television: Not at all Moving or speaking so slowly that other people could have noticed; or the opposite, being so fidgety or restless that you have been moving around a lot more than usual: Not at all Thoughts that you would be b iam off or of hurting yourself in some way: Not at all Total Score: 2 Interpretation: Minimal Depression Functional Status Functional Status Assessment F all Risk Assessment:: Two or more falls with injury in the past year Depression Screening AYO-7 (2018 Edition) Feelin g nervous, anxious, or on edge: Several days Not being able to stop or control worryi ng: Not at all Worrying too much about different things : Not at all Trouble relaxing: Not at all Being so restless that it is hard to sit still: Not at all Becoming easily annoyed or irritable: No t at all Feeling afraid as if something awful airam ht happen: Several days Total AYO-7 Score: 2 Interpretation of Total: (0 to 4) No Anx iety [place]-Suicide Severity Rating Scale Suicide Risk (CSRS-screener) in the past one month Have you wished you were or wished you could go to sleep and not wake up?: No in the past one month Have y ou actually had any thoughts of killing yourself?: No Examination Category Sub-Category Detail Notes Category Not es General Examination N/A
--- OUTSIDE RECORDS SUMMARY | 2025-06-02 14:17 | XMS_ITS | Clinical Summary ---
Author Organization [facility] Address [address] [place] [address] Care Team Providers Care Biological Science Aide Name Role Phone Deirdre Gaspar MD Primary Care Provider [phone] Source Comments [facility],non-owned Affiliates and Associated Physician Practices is amultiple site organization consisting of ambulatory clinics and hospital sitesin [place], [place], [place]. This disclosure is being madepursuant to the Care Everywhere program and may not contain all information available regarding this patient. Last updated 18.[facility] [employer] Allergies Active Allergy Reactions Criticality Noted Date Comments Amlodipine Base Palpitations Low 03/07/2016 Racing Heart Brimonidine Tartrate-Timolol Unknown,Swelling High 09/29/2015 Redness, the white of my eye turned yellow, discharge Budesonide Other Low 07/20/2020 Cephalexin Nausea and/or Vomiting Low 08/19/2018 Hmg-Coa-R Inhibitors Nausea and/or Vomiting Low 03/07/2016 Bimatoprost Eye Discomfort 04/09/2019 Methazolamide Unknown Low 11/14/2017 Headache Metronidazole Nausea and/or Vomiting Low 08/19/2018 Moxifloxacin GI Discomfort Low 08/19/2018 Paroxetine Nausea and/or Vomiting Low 11/14/2017 Sertraline Other Low 03/07/2016 Nightmares Medications * This document contains information received from the source organization and may not represent a complete record from that organization. * Be aware that medications may not be up to date on this document. Alwaysverify current medications with the patient. aspirin (ASPIRIN) 81 MG tablet Take 81 mg by mouth Active Beta Carotene 73409 UNITS Take 25,000 Units by mouth once daily Active dorzolamide-jermaine lol (COSOPT) 22.3-6.8 MG/ML ophthalmic solution Instill 1 drop into left eye 2 times daily Active sodium chloride, hypertonic, (CHIQUI-128) 5 % ophthalmic solution 1 drop by Ophthalmic route Active FOLIC ACID PO Take 0.4 mg by mouth once daily Active Biotin 5 MG Take 5 mg by mouth once daily Active Cyanocobalamin (B-12) 1000 MCG TABS Take 1,000 mcg by mouth once daily Active gabapentin (NEURONTIN) 600 MG tablet Take 1/2 tab (300 mg) PO QHS 45 tablet 3 0 Active calcium carbonate (CALTRATE) 600 MG tablet Take 600 mg by mouth once daily Active Loratadine (CLARITIN PO) Take 1 tablet by mouth once daily Active Naproxen Sodium (ALEVE) 220 MG Take 220 mg by mouth once daily as needed Active omeprazole (PRILOSEC) 20 MG capsuleIndicatio ns:Gastroesophag eal reflux disease without esophagitis Take 1 (one) capsule by mouth daily before breakfast 90 capsule 3 1 Active furosemide (LASIX) 20 MG tablet 1 Active prednisoLONE acetate (PRED FORTE) 1 % ophthalmic suspensionIndica tions:H/O cornea transplant Instill 1 (one) drop into left eye every other day as needed 5 mL 11 1 Active Active Problems Problem Noted Date Diagnosed Date COVID-19 virus infection 01/10/2021 Lymphocytic colitis 08/14/2020 Eyelid cyst, left 05/03/2020 Overview (07/12/2021): Last Assessment & Plan: Small cyst on temporal aspect of left lower lid. Not disrupting lashes. No vessels. Recommend observation Trigger ring finger of right hand 04/14/2020 Glaucoma suspect, right eye 01/20/2019 Overview (07/12/2021): Last Assessment & Plan: Nl nerve fiber layer (NFL) intraocular pressure (IOP) acceptable Rim defect of Mauro visual field (HVF) CPM Peripheral polyneuropathy 05/08/2018 Trigeminal neuralgia of right side of face 05/08 Gastroesophageal reflux disease without esophagi tis 05/08/2018 History of Descemet membrane endothelial keratoplasty (DMEK) 04/14/2018 Overview (07/12/2021): Last Assessment & Plan: F/U with Dr. Dorado Bilateral pseudophakia 03/25/2018 Overview (07/12/2021): Last Assessment & Plan: Lenses stable and in good position. Continue to monitor. Glaucoma secondary to other eye disorders, left eye, severe stage 12/10/2017 Overview (07/12/2021): Last Assessment & Plan: IOPs 08/30 today on 3 classes OS only, pred forte (PF) Q2D OS F/U with Dr. Dorado as scheduled 07/20/21 HVF: stable vs 2019, ?progression vs 2018 OCT: mild SN thinning OD, near floor effect OS Given excellent IOPs today, CPM, see Dr. 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 (AF LURIA, FLUZONE TRIVALENT; 6MO+) (IIV3) 07/22/2017 Covid Moderna primary monovalent 12+ yr 0.5mL INFLUENZA VACCINE, ADJUVANTE D, TRIV. (FLUAD TRIVALENT; 65Y+) (AIIV3) 06/25/2019 INFLUENZA VACCINE, HIGH-DOSE , QUADR. (FLUZONE HIGH-DOSE QUADRIVALENT; 65Y+), 0.7 ML (HD-IIV4) 06/26/2020,06/29/2018 PNEUMOCOCCAL PPSV23 11/14/2010 Pneumococcal Pcv13 Conj 09/14/2016 ZOSTER VACCINE, LIVE 09/20/2008 Zoster Hzv Vacc Recombinant Inj Im 03/17/2018 Family History Medical History Relation Name Comments Leukemia Brother Relation Name Status Comments Brother Social History Tobacco Use Types Packs/Day Years Used Date Smoking Tobacco: Never Smokeless Tobacco: Never Alcohol Use Standard Drinks/Week Comments No 0 (1 standard drink = 0.6 oz pur e alcohol) PHQ-2 Answer Date Recorded PHQ2 TOTAL SCORE 0 05/18/2021 Comments No Sex and Gender Information Value Date Recorded Sex Assigned at Not on file Legal Sex Female 6:22 AM ANDROID ARCHITECT Gender Identity Not on file Sexual Orientation Not on file Occupation Industry Job Start Date Job End Date [facility] Not on file Not on file N ot on file Last Filed Vital Signs Vital Sign Reading Time Taken Comments Blood Pressure 114/76 05/18/2021 8:31 AM CDT Pulse 88 05/18/2021 8:31 AM CDT Temperature 36.5 C (97.7 F) 05/18/2021 8:30 AM CDT Respiratory Rate 18 09/06/2020 1:44 PM ANDROID ARCHITECT Oxygen Saturation 96% 05/18/2021 8:31 AM CDT Inhaled Oxygen Concentration - - Weight 81.6 kg (180 lb) 05/18/2021 8:30 AM CDT Height 163.8 cm (5' 4.5) 05/18/2021 8:30 AM CDT Body Mass Index 30.42 05/18/2021 8:30 AM CDT Plan of Treatment Health Maintenance Due Date Last Done Comments BONE DENSITY TESTING 1945 MEDICARE AWV 12 MONTHS 1945 DTAP/TDAP/TD VACCINES (1 - Tdap) 1964 ZOSTER VACCINE (3 of 3) 05/12/2018 03/17/2018, 09/20 Respiratory Syncytial Virus (RSV) Vaccine Pt: or over 60 yrs (1 - 1-dose 75+ series) 2020 COVID-19 VACCINE ( - season) 2024 06/21/2024, 12/22/2020, 11/21/2020 DEPRESSION SCREENING 10/20/2024 INFLUENZA VACCINE (#1) 2025 4, 06/15/2021, 06/26/2020, Additional history exists PNEUMOCOCCAL VACCINE 50+ Completed 09/14/2016, 10/21 HEPATITIS B VACCINE Aged Out No longe r eligible based on patient's age to complete this topic HIB VACCINE Aged Out No longer eligi ble based on patient's age to complete this topic HPV VACCINE Aged Out No longer eligi ble based on patient's age to complete this topic MENINGOCOCCAL (Group B) VACCINE SHARED DECISION-MAKING Aged Out No longer eligible based on patient's age to complete this topic MENINGOCOCCAL GROUPS A/C/Y/W VACCINE Aged Out No longer eligible based on patient's age to complete this topic Goals Goal Patient Goal Type Associated Problems Recent Progress Patient-Stated? Author Medication Management General Byron Garcia RN Note: Expected end date: ongoing Interventions: Take all medications as prescribed Let your doctor know right away about any changes in your medications Make sure to request a refill of your medication at least one week prior to your last dose Insurance MEDICARE [employer] MEDICARE Factor 14 [facility] [place] Care Teams Biological Science Aide Relationship Specialty Start Date End Date Deirdre Gaspar MD [address] [address] PCP - General 05/08/18
--- OUTSIDE RECORDS SUMMARY | 2025-06-02 14:17 | XMS_ITS | Encounter Summary ---
Author Organization [facility] Address [address] [place] [address] Phone Care Team Providers Care Investigations Director Name Role Phone Stacey Hollingsworth MD Primary Care Provid er Encounter Details Date Type Department Care Team (Late st Contact Info) Description 04/30/2025 Results Follow-Up [facility] Medicine [address] [place] [address] [place] [id number] Stacey Hollingsworth MD [address] [place], [place] [id number] Dexa Axial Skeleton Bone Density 1 or 2 Site, CBC with auto differential, Comprehensive metabolic panel, Additional followed-up results: 5 Social History Tobacco Use Types Packs/Day Years [...] staff should administer the PHQ-9) 0 04/11/2025 Comments Unknown Sex and Gender Information Value Date Recorded Sex Assigned at Not on file Legal Sex Female 2:10 AM CASTING COORDINATOR Gender Identity Female 04/04/2020 11:01 AM CDT Sexual Orientation Straight 04/04/2020 11 :01 AM CDT documented as of this encounter Plan of Treatment Not on file documented as of this encounter Visit Diagnoses Not on filedocumented in this encounter Care Teams Investigations Director Relationship Specialty Start Date End Date Stacey Hollingsworth MD PCP - General Geriatric Medicine 08/18/24 documented as of this encounter
--- OUTSIDE RECORDS SUMMARY | 2025-06-02 14:17 | XMS_ITS | Encounter Summary ---
Author Organization [facility] Address [address] [place], [place] [address] [address] Care Team Providers Care Arts And Crafts Instructor Name Role Phone Deirdre Gaspar MD Primary Care Provider [phone] Reason for Visit * Reason Onset Date Comments MEDICATION REFILL 07/14/2019 MEDICATION REFILL 07/19/2019 Encounter Details Date Type Department Care Team (Late st Contact Info) Description 07/14/2019 Refill [facility] [address] [place] [address] Deirdre Gaspar MD [address] [facility] [address] [place] [address] MEDICATION REFILL; MEDICATION REFILL Social History Tobacco Use Types Packs/Day Years Used Date Smoking Tobacco: Never Smokeless Tobacco: Never Alcohol Use Standard Drinks/Week Comments No 0 (1 standard drink = 0.6 oz pur e alcohol) Comments No Sex and Gender Information Value Date Recorded Sex Assigned at Not on file Legal Sex Female 6:22 AM LOTTERY SALES CLERK Gender Identity Not on file Sexual Orientation Not on file Occupation Industry Job Start Date Job End Date [facility] Not on file Not on file N ot on file documented as of this encounter Plan of Treatment Not on file documented as of this encounter Visit Diagnoses Not on filedocumented in this encounter Care Teams Arts And Crafts Instructor Relationship Specialty Start Date End Date Deirdre Gaspar MD [address] [facility] [address] [place], [place] [id number] PCP - General 05/08/18 documented as of this encounter
--- OUTSIDE RECORDS SUMMARY | 2025-06-02 14:18 | XMS_ITS | Clinical Summary ---
Author Organization [facility] Address [address] [place] [address] Phone Care Team Providers Care Side Puller Name Role Phone Unavailable Primary Care Provider Unavailabl e Allergies Active Allergy Reactions Criticality Noted Date Comments Brimonidine-Timolol Swelling Low 08/19/2018 Cephalexin Nausea and Vomiting Low 08/19/2018 Metronidazole Nausea and Vomiting Low 08/19/2018 Moxifloxacin Abdominal Pain Low 08/19/2018 Sertraline Other (See Comments) 08/19/2018 NIGHTMARES Psbzaeb-Qsh-Tfb Reductase Inhibitors Other (See Comments) 08/19/2018 FATIGUE,MYALGIA Medications dorzolamide-mracos olol (COSOPT) 22.3-6.8 mg/mL solution Administer 1 Drop in left eye 2 times daily. Active prednisoLONE acetate (PRED FORTE) 1 % suspension Administer 1 Drop in left eye 2 times daily. Active omeprazole (PriLOSEC) 20 mg Capsule, Delayed Release(E.C.) Take 20 mg by mouth daily. Active gabapentin (GRALISE) 300 mg Extended Release 24 hour tablet Take by mouth. Activ e loratadine (CLARITIN) 10 mg tablet Take 10 mg by mouth daily. Active fluticasone (ALLERGY RELIEF, FLUTICASONE,) 50 mcg/spray [place], Suspension Administer 2 Sprays in each nostril daily. Active aspirin (ECOTRIN EC) 81 mg Tablet, Delayed Release (E.C.) Take 81 mg by mouth daily. Active calcium as carbonate (CALTRATE) 1,500 mg (600 mg elemental) Tablet Take 600 mg by mouth daily. Active beta carotene 25,000 unit Capsule Take by mouth daily. Active biotin 5 mg Capsule Take by mouth daily. Active folic acid (FOLVITE) 400 mcg Tablet Take 400 mcg by mouth daily. Active OTHER Provider please include Medication name, dose, route and frequency . Active oxyCODONE-aceta minophen (PERCOCET) 5-325 mg tablet Take 1 Tablet by mouth every 4 hours as needed for pain. 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2 C (97.1 F) 08/25/2018 8:07 PM ORGANIC PREPARATION TECHNICIAN Respiratory Rate 14 08/25/2018 8:07 PM ORGANIC PREPARATION TECHNICIAN Oxygen Saturation 97% 08/25/2018 8:07 PM ORGANIC PREPARATION TECHNICIAN Inhaled Oxygen Concentration - - Weight 83.7 kg (184 lb 9.6 oz) 08/25/2018 11:48 AM ORGANIC PREPARATION TECHNICIAN Height 163.8 cm (5' 4.5) 08/19/2018 3:02 PM CDT Body Mass Index 31.2 08/19/2018 3:02 PM CDT Plan of Treatment Health Maintenance Due Date Last Done Comments DTAP/TDAP/TD VACCINES (1 - Tdap) 1964 PNEUMOCOCCAL VACCINE 50+ YEARS (1 of 1 - PCV) 08/01/19 95 ZOSTER VACCINE (1 of 2) 1995 OSTEOPOROSIS SCREENING 2010 RSV VACCINE (60+ or ) (1 - 1-dose 75+ series) 2020 INFLUENZA VACCINE (#1) 2025 Insurance [employer] RX Member Subscriber Plan / Payer (Ef fective 2014-Present) Name:Crissy Perez Relation to Subscriber:Self Name:Crissy Perez Payer ID:Not on file Group ID:[id number] Type:RX Medicare Part D Address: [address] Advance Directives For more information, please contact: [phone] * Full Code (Latest Code Status on File) Date Activated Date Inactivated Comments 08/25/2018 1:03 PM 08/25/2018 10:09 PM * Full Code Date Activated Date Inactivated Comments 08/25/2018 11:40 AM 08/25/2018 1:03 PM
--- OUTSIDE RECORDS SUMMARY | 2025-06-02 14:18 | XMS_ITS | Clinical Summary ---
Author Organization [facility] Address [facility] [place] [address] Care Team Providers Care Level Designer Name Role Phone Clifford Rivas MD Primary Care Provider [phone] Allergies Active Allergy Reactions Criticality Noted Date Comments Amlodipine Palpitations Low 03/07/2016 Racing Heart Bimatoprost Other (see comment) 04/09/2019 Brimonidine Tartrate-Timolol Swelling,Unknown High 09/29/2015 Redness, the white of my eye turned yellow, discharge Budesonide Other (see comment) Low 07/20/2020 Cephalexin Nausea and Vomiting Low 08/19/2018 Latanoprost Other (see comment) Low 08/05/2018 Red, itchy, swollen and bumpy on the eye Methazolamide Unknown Low 11/14/2017 Headache Metronidazole Nausea and Vomiting,Vomiting Low 08/19/2018 TACHYCARDIA Moxifloxacin GI Upset Low 08/19/2018 Paroxetine Nausea and Vomiting Low 11/14/2017 Sertraline Other (see comment) Low 03/07/2016 Nightmares NIGHTMARES Statins Nausea and Vomiting Low 03/07/2016 Medications Gelatin 650 MG Cap Take 600 mg by mouth daily. Active aspirin EC (ECOTRIN) 81 MG tablet Take 1 tablet (81 mg total) by mouth daily. Active Folic Acid 20 MG Cap Take by mouth Active Beta Carotene 17466 units Cap Take by mouth. Active Cyanocobalamin (B-12) 1000 MCG Tab Take 1,000 mcg by mouth daily. Active Biotin 5 MG Cap Take 5 mg by mouth daily. Active omeprazole (PRILOSEC) 20 MG capsule 05/22/2022 Active Vitamin D3 125 mcg Tab Take 1 tablet (125 mcg total) by mouth daily. Active dorzolamide-marcos olol (COSOPT) 22.3-6.8 MG/ML Solution 09/08/2022 Active prednisoLONE acetate (PRED FORTE) 1 % ophthalmic suspension 09/08/2022 Active gabapentin (NEURONTIN) 100 MG capsule 3 capsules (300 mg total). 100mg capsule in a.m.; 300mg capsule at night 05/21/2023 Active Immunizations Immunization Administration Dates Next Due MODERNA COVID-19 (12+) MRNA, LNP-S, PF, 100 MCG/ 0.5 ML DOSE 12/22/2020 Family History Medical History Relation Comments Alcohol Abuse Brother 1 Cancer Brother 1 Alcohol Abuse Brother 2 Drug Abuse Brother 2 Early Brother 2 Alcohol Abuse Brother 3 Alcohol Abuse Father Arthritis Father Heart Disease Father Hypertension Maternal Aunt 1 Vision loss Maternal Aunt 1 Hypertension Maternal Aunt 2 Vision loss Maternal Aunt 2 Arthritis Maternal Grandmother Cancer Maternal Grandmother Vision loss Maternal Uncle Alcohol Abuse Mother Cancer Mother Heart Disease Mother Alcohol Abuse Paternal Aunt 1 Cancer Paternal Aunt 1 Alcohol Abuse Paternal Aunt 2 Early Hearing Loss Paternal Aunt 2 Stroke Paternal Aunt 2 Cancer Paternal Aunt 3 Hypertension Paternal Aunt 4 Heart Disease Paternal Uncle 1 Heart Disease Paternal Uncle 2 Relation Status Comments Brother 1 Brother 2 Brother 3 Father Maternal Aunt 1 Maternal Aunt 2 Maternal Grandmother Maternal Uncle Mother Paternal Aunt 1 Paternal Aunt 2 Paternal Aunt 3 Paternal Aunt 4 Paternal Uncle 1 Paternal Uncle 2 Social History Tobacco Use Types Packs/Day Years Used Date Smoking Tobacco: Never Smokeless Tobacco: Never Tobacco Cessation:Counseling Given: No Comments:na Alcohol Use Standard Drinks/Week Comments Not Currently 0 (1 standard drink = 0.6 oz pur e alcohol) About 4 a year PHQ-2 Answer Date Recorded Patient Health Questionnaire-2 Score 0 11/23/2024 Comments No Sex and Gender Information Value Date Recorded Sex Assigned at Female 11/19/2024 7:37 AM TRADE EMBALMER Legal Sex Female 8:22 AM CDT Gender Identity Female 11/23/2024 11:07 AM TRADE EMBALMER Sexual Orientation Not on file Last Filed Vital Signs Vital Sign Reading Time Taken Comments Blood Pressure 132/78 11/23/2024 11:03 AM TRADE EMBALMER Pulse 69 11/23/2024 11:03 AM TRADE EMBALMER Temperature 36.3 C (97.4 F) 07/03/2023 9:55 AM CDT Respiratory Rate - - Oxygen Saturation - - Inhaled Oxygen Concentration - - Weight 82.1 kg (181 lb) 11/23/2024 11:03 AM TRADE EMBALMER Height 162.6 cm (5' 4.02) 04/01/2024 9:09 AM CD T Body Mass Index 31.05 04/01/2024 9:09 AM CDT Plan of Treatment Health Maintenance Due Date Last Done Comments Hepatitis C 1963 Annual Medicare Wellness Visit 2010 Dexa Scan (General) 2010 DTaP, Tdap and Td Vaccines ( 2 - Td or Tdap) 06/14/2018 06/14/2008 RSV Immunization or 60+ Years (1 - 1-dose 75+ series) 2020 COVID-19 Vaccine (4 - 2023-2 5 season) 2024 06/21/2024, 12/22/2020, 11/21/2020 Pneumococcal Vaccine: 50+ Years Completed 09/16/2016, 11/14/2010 Zoster Vaccines Completed 03/17/2018, 01/05/2018, 09/20/2008 PHQ-2 (Physician [place]) Completed 11/23/2024 Meningococcal B Vaccine Aged Out No l onger eligible based on patient's age to complete this topic Meningococcal Vaccine Aged Out No jeff alexander eligible based on patient's age to complete this topic RSV Immunizations Under 20 Months Aged Out No longer eligible b ased on patient's age to complete this topic [facility] Care Teams Level Designer Relationship Specialty Start Date End Date Clifford Rivas MD [address] [place] [address] PCP - General FAMILY PRACTICE 07/03/23
== END 2025-06-02 14:16 | disposition home or self-care (01) ==
LOC: ANHAUDIO 14:15
DX: H90.3 Sensorineural hearing loss, bilateral (principal)
CPT/HCPCS: 92557; 92567; 99199

== ENCOUNTER 2025-10-18 08:30 | Outpatient (RCR) | payer MEDICARE, SELFPAY | END 2025-10-18 23:59 | disposition home or self-care (01) | LOC: ANHAUDIO 08:30 | DX: Z46.1 Encounter for fitting and adjustment of hearing aid (principal) | CPT/HCPCS: 99199; V5261 ==